=== PATIENT | male | born 1950 | race Caucasian/White ===

== ENCOUNTER 2019-03-06 07:51 | Emergency (ER) | payer OTHER, MEDICARE ==
[2019-03-06 08:11] VITALS: BP 132/85; PULSE 82; TEMP 100; BMI 29.8
[2019-03-06] MEDS ORDERED: guaiFENesin/CODEINE 10 ML UNIT-DOSE CUPS PO ONE (08:27)
[2019-03-06] MEDS ORDERED: ALBUTEROL SO4 2.5/IPRATROPIUM 0.5 INH SOL 3 ML VIAL.NEB. NEB ONE ×2 (08:27)
[2019-03-06] MEDS ORDERED: guaiFENesin/CODEINE 10 ML UNIT-DOSE CUPS ONE (08:30)
--- NOTE | 2019-03-06 08:46 | PDOC ---
History of Present Illness - General Chief Complaint: Cold Symptoms Stated Complaint: COUGH, Time Seen by Provider: 03/06/19 08:14 - History of Present Illness Initial Comments: 03/06/19 08:41 Chief complaint: Cough HPI: Patient complains of nonproductive cough since yesterday. Feels short of breath with recumbency. Feels breathing is restricted. No chest pain. Review of systems: Denies fever/chills, chest pain, abdominal pain, nausea, vomiting, diarrhea, visual or focal neurologic symptoms, unsteadiness of gait, urinary tract symptoms, body aches, malaise, fatigue. Remainder of systems reviewed and negative Past medical history: Asthma as a child, but seems to have resolved in adulthood. Elevated cholesterol. Insomnia. Denies SC, CVA, PVD, asthma, emphysema, or chronic bronchitis. Denies diabetes. Social history: No tobacco alcohol or nonprescription drugs. Fully active without disability. Stable home and family Family history reviewed and noncontributory including early coronary artery disease, metabolic diseases including diabetes, pulmonary disease, and cancer Physical exam: Alert and oriented well-developed well-nourished no acute distress cooperative. No tachypnea or dyspnea Afebrile, temperature 100 degrees. Oxygen saturation 95% room air. Remainder vital signs normal including normal respiratory rate. There is no noticeable tachypnea or dyspnea HEENT normal Neck supple without bruit mass or nodes Lungs mildly decreased breath sounds bilaterally, symmetric. No wheezes rales or rhonchi. No obvious dyspnea or tachypnea. CV regular without murmur rub or gallop Abdomen benign Skin clear, no rash, adequate turgor and wet mucous membranes Extremities no CCE Impression: Bronchitis, bronchospasm. Respiratory status is stable Plan: Nebulizer treatment, reevaluation, symptomatic treatment for bronchitis and close follow-up. Past History - Past Medical History Allergies/Adverse Reactions: Allergies Allergy/AdvReac Type Severity Reaction Status Date / Time aspirin Allergy Severe Swelling Verified 03/06/19 07:53 mustard Allergy Verified 03/06/19 07:53 Home Medications: Ambulatory Orders Albuterol Sulfate [Albuterol Sulfate Hfa] 1 - 2 inh IH Q4HWA PRN #1 [email or web address] 03/06/19 Amoxicillin - [Amoxicillin 250mg Capsule -] 250 mg PO TID #21 capsule 03/06/19 Guaifenesin AC [Robitussin-AC] 1 - 2 tsp PO Q4HWA PRN #120 ml MDD 8 03/06/19 Rosuvastatin Calcium 10 mg PO DAILY 03/06/19 Zolpidem Tartrate 10 mg PO HS 03/06/19 COPD: No - Psycho Social/Smoking Cessation Hx Smoking History: Never smoked Have you smoked in the past 12 months: No Information on smoking cessation initiated: No Hx Alcohol Use: No Drug/Substance Use Hx: No *Physical Exam - Vital Signs Last Vital Signs Temp Pulse Resp BP Pulse Ox 100 F H 82 20 132/85 95 03/06/19 07:51 03/06/19 07:51 03/06/19 07:51 03/06/19 07:51 03/06/19 07:51 ED Treatment Course - Medications Given in the ED: ED Medications Discontinued Medications Generic Name Dose Route Start Last Admin Trade Name Freq PRN Reason Stop Dose Admin Albuterol/Ipratropium 1 amp 03/06/19 08:27 03/06/19 08:30 Duoneb - NEB 03/06/19 08:28 1 amp ONCE ONE Administration Guaifenesin/Codeine Phosphate 10 ml 03/06/19 08:27 03/06/19 08:30 Robitussin Ac - PO 03/06/19 08:28 10 ml ONCE ONE Administration Medical Decision Making - Medical Decision Making 03/06/19 09:06 Patient is subjectively improved after nebulizer treatment. Breath sounds improved. Oxygen saturation 96%. Respiratory rate 12 and unlabored. Continue albuterol inhaler at home. Antibiotics and cough suppressant. Return to ER if breathing is worse otherwise follow-up primary physician. Fully ambulatory in no respiratory or other distress at discharge with son to follow- up as directed Discharge - Discharge Information Problems reviewed: Yes Clinical Impression/Diagnosis: Acute bronchitis Condition: Improved Disposition: HOME - Admission No - Additional Discharge Information Prescriptions: Albuterol Sulfate [Albuterol Sulfate Hfa] 1 - 2 inh IH Q4HWA PRN #1 [email or web address] PRN Reason: Wheezing Amoxicillin - [Amoxicillin 250mg Capsule -] 250 mg PO TID #21 capsule Guaifenesin AC [Robitussin-AC] 1 - 2 tsp PO Q4HWA PRN #120 ml MDD 8 PRN Reason: Cough - Follow up/Referral - Patient Discharge Instructions Patient Printed Discharge Instructions: DI for Acute Bronchitis Additional Instructions: Rest, stay out of the cold, medication as directed. If breathing is worse return to the emergency room, otherwise follow-up with primary physician in 2 to 3 days. - Post Discharge Activity
== END 2019-03-06 09:10 | disposition home or self-care (01) ==
LOC: FER 07:51
PROC: 3E0F7GC Introduction of Other Therapeutic Substance into Respiratory Tract, Via Natural or Artificial Opening (ICD-10-PCS; principal; 2019-03-06)
DX: J40 Bronchitis, not specified as acute or chronic (principal); Z88.8 Allergy status to other drugs, medicaments and biological substances; Z91.018 Allergy to other foods
CPT/HCPCS: 99282-25